=== PATIENT | male | born 1965 | race Caucasian/White ===

== ENCOUNTER 2017-01-29 17:29 | Emergency (ER) | payer OTHER ==
[~2017-01-29] VITALS: Ht 175.3 cm; Wt 101.6 kg
[~2017-01-29 17:29] MED LIST: ALPRAZOLAM0.25 MG; CLINDAMYCIN HC300 MG PO; COGENTIN0.5 MG; COGENTIN0.5 MG PO; COUMADIN,JANTOVE5 MG PO; COUMADIN4 MG PO; COUMADIN5 MG; Cogentin PO; Coumadin,Jantoven PO; DEXILANT60 MG PO; ELAVIL25 MG PO; FLEXERIL5 MG PO; FLUOXETINE HCL10 MG PO; INDERAL LA120 MG; INDERAL LA120 MG PO; Inderal LA PO; LISINOPRIL10 MG PO; ONCE DAILY1 EACH PO; PANTOPRAZOLE SO40 MG PO; PERCOCET 5/31 TABLET PO; PRILOSEC20 MG PO; PROZAC10 M1; PROZAC20 MG PO; PROZAC40 MG; PROZAC40 MG PO; PROzac PO; Phenergan PO; RISPERDAL0.5 MG; RISPERDAL3 MG; RISPERDAL3 MG PO; Reglan PO; STOOL SOFTENER100 MG PO; TRICOR48 MG PO; Tricor PO; UNABLEOBTAIN; WARFARIN SODIUM1 MG PO; WARFARIN SODIUM5 MG PO; XANAX0.25 MG PO; XARELTO15 MG PO; Xanax PO; [UNRECOGNIZED DRUG - OTHER] PO; risperDAL PO
[2017-01-29 19:34] LABS: HEMATOCRIT 40.4 % (38.0-50.0); MCH 31.9 PG (29.0-34.0); MCHC 33.9 G/DL (30.0-36.0); MEAN PLAT.VOLUME 10.2 uM^3 (9.0-12.4); PLATELET COUNT 173 K/uL (156-360); RBC DIS.WIDTH-CV 13.7 % (11.8-14.6); RBC DIS.WIDTH-SD 46.8 % (39-53); WHITE BLOOD COUNT 6.5 K/uL (4.1-10.2)
[2017-01-29 19:43] LABS: CHLORIDE 107 mEq/L (99-109); POTASSIUM 4.2 mEq/L (3.7-5.4); SODIUM 140 mEq/L (136-147)
[2017-01-29 19:45] LABS: GLUCOSE 105 mg/dL (70-99)
[2017-01-29 19:47] LABS: ANION GAP 9 MEQ/L (2-14); INTER. NORMALIZED RATIO 1.1; PROTHROMBIN TIME 11.4 (9.2-11.2)
[2017-01-29 19:49] LABS: GFR ESTIMATE (CALCULATED) 57 mL/min/
[2017-01-29 19:50] LABS: UREA NITROGEN (BUN) 11 mg/dL (9-23)
[2017-01-29] MEDS ORDERED: NORCO 5/3251 TABLET PO (21:52)
[2017-01-29] MEDS ORDERED: LITE COAT ASPI325 M1 PO (21:57)
[2017-01-30] MEDS ORDERED: INDERAL LA80 MG PO (01:02)
[2017-01-30] MEDS ORDERED: PENTOXIFYLLINE400 MG PO (01:03)
[2017-01-30 08:32] VITALS: BP 124/76
== END 2017-01-30 08:55 | disposition home or self-care (01) ==
LOC: EME 17:29
PROVIDERS: Physician Assistant
DX: I82.441 Acute embolism and thrombosis of right tibial vein (principal); I82.511 Chronic embolism and thrombosis of right femoral vein; I82.531 Chronic embolism and thrombosis of right popliteal vein; F32.9 Major depressive disorder, single episode, unspecified; F41.9 Anxiety disorder, unspecified; R45.851 Suicidal ideations; I73.9 Peripheral vascular disease, unspecified; F43.22 Adjustment disorder with anxiety; I10 Essential (primary) hypertension; Z86.711 Personal history of pulmonary embolism; Z87.891 Personal history of nicotine dependence
CPT/HCPCS: 73590; 80048; 85027; 85610; 85730; 90839; 93971; 99281; 99283

== ENCOUNTER 2018-06-04 23:58 | Emergency (ER) | payer OTHER ==
[~2018-06-04] VITALS: Ht 175.3 cm; Wt 100.2 kg
[~2018-06-04 23:58] MED LIST changes: +INDERAL LA80 MG PO; +LITE COAT ASPI325 M1 PO; +NORCO 5/3251 TABLET PO; +PENTOXIFYLLINE400 MG PO
[2018-06-05 01:21] LABS: HEMATOCRIT 38.8 % (38.0-50.0); HEMOGLOBIN 13.6 G/DL (12.5-16.6); MCHC 35.1 G/DL (30.0-36.0); MCV 94.2 FL (86-99); PLATELET COUNT 169 K/uL (156-360); RBC DIS.WIDTH-CV 12.4 % (11.8-14.6); RBC DIS.WIDTH-SD 43.1 % (39-53); RED BLOOD COUNT 4.12 M/uL (4.00-5.50); WHITE BLOOD COUNT 7.5 K/uL (4.1-10.2)
[2018-06-05 01:34] LABS: PTT 26.3 SEC (25-37)
[2018-06-05 01:54] LABS: ALKALINE PHOSPHATASE 58 IU/L (3-129); ALT (GPT) 13 IU/L (3-49); AST (GOT) 16 IU/L (2-34); CHLORIDE 104 MEQ/L (99-109); CREATININE 1.3 MG/DL (0.6-1.3); GFR ESTIMATE (CALCULATED) > 59 mL/min/ (58.99-99999); GLUCOSE 98 mg/dL (70-99); POTASSIUM 3.9 MEQ/L (3.7-5.4); SODIUM 138 MEQ/L (136-147); TOTAL BILIRUBIN 0.4 MG/DL (0.0-1.0); TOTAL PROTEIN 6.8 G/DL (6.4-8.3); UREA NITROGEN (BUN) 9 mg/dL (9-23)
[2018-06-05] MEDS ORDERED: ZOFRAN ODT8 MG PO (04:12)
[2018-06-05] MEDS ORDERED: ZANTAC300 MG PO (04:12)
[2018-06-05 04:53] VITALS: BP 124/87
== END 2018-06-05 04:54 | disposition home or self-care (01) ==
LOC: EME 23:58
PROVIDERS: Physician Assistant
DX: L30.9 Dermatitis, unspecified (principal); I10 Essential (primary) hypertension; K21.9 Gastro-esophageal reflux disease without esophagitis; J45.909 Unspecified asthma, uncomplicated; F41.9 Anxiety disorder, unspecified; F32.9 Major depressive disorder, single episode, unspecified; Z87.891 Personal history of nicotine dependence; Z86.718 Personal history of other venous thrombosis and embolism; Z86.711 Personal history of pulmonary embolism; Z87.19 Personal history of other diseases of the digestive system; Z98.890 Other specified postprocedural states
CPT/HCPCS: 80053; 85027; 85379; 85610; 85730; 93970; 99281; 99284